=== PATIENT | male | born 1955 | race African-American/Black ===

== ENCOUNTER 2021-04-04 18:10 | Emergency (ER) | payer OTHER, MEDICAID ==
[~2021-04-04] VITALS: Ht 177.8 cm; Wt 86.2 kg
--- NOTE | 2021-04-04 18:10 | NUR ---
Patient KERRI ALS accompanied by Lilliam lopez 101, transferred to bed 10. RN evaluating the patient at bedside.
[2021-04-04 18:14] VITALS: BP 110/58
[2021-04-04] MEDS ORDERED: diphenhydrAMINE 50 MG/ML VIAL IVP ONE (18:15)
[2021-04-04] MEDS ORDERED: NACL 0.9% 1,000 ML IV ONE ×2 (18:15→19:35)
[2021-04-04] MEDS ORDERED: LORazepam 2 MG/ML VIAL IVP ONE ×2 (18:15→19:10)
[2021-04-04 18:35] LABS: BASOPHILS % (AUTO) 0.5 % (0.0-2.0); EOSINOPHILS % (AUTO) 0.5 % (0.0-4.0); HEMATOCRIT 40.9 % (36-52); HEMOGLOBIN 13.4 g/dL (12.0-18.0); LYMPHOCYTES # (AUTO) 0.9 K/uL (2.0-11.5); LYMPHOCYTES % (AUTO) 16.6 % (20.5-51.1); MEAN CORPUSCULAR HEMOGLOBIN 29 pg (27-31); MEAN CORPUSCULAR HGB CONC 33 g/dL (33-37); MEAN CORPUSCULAR VOLUME 88.4 fL (80-94); MONOCYTES # (AUTO) 0.5 K/uL (0.8-1.0); MONOCYTES % (AUTO) 9.3 % (1.7-9.3); NEUTROPHILS # (AUTO) 4.2 K/uL (1.8-7.7); NEUTROPHILS % (AUTO) 73.1 % (42.2-75.2); PLATELET COUNT (AUTO) 219 K/uL (140-450); RED BLOOD CELL COUNT(AUTO) 4.63 MIL/uL (4.20-6.10); RED CELL DISTRIBUTION WIDTH 13.6 % (11.6-13.7); WHITE BLOOD COUNT (AUTO) 5.7 K/uL (4.8-10.8)
--- NOTE | 2021-04-04 18:55 | NUR ---
66 Y/O M BIBA FROM HOME, FAMILY STATES PT WAS WORKING OUT AND STARTED HAVING TREMBLING THAT STARTED TODAY. PT STATES HE TOOK NORCO FOR PAIN, BUT DENIES ANY OTHER DRUG USE. PT IS NOT C/O PAIN AT THIS TIME [facility] STATES PT WAS INCONTINENT AT SCENE. PT IS A&OX4 UNABLE TO AMBULATE AT THIS TIME. DENIES N/V/D; SKIN IS PINK/COOL/DRY; ; LUNGS CLEAR BL; HR EVEN AND TACHY; PT DENIES ANY FEVER, CP, SOB, OR COUGH AT THIS TIME; PATIENT STATES PAIN OF 0/10 AT THIS TIME; VSS; PATIENT POSITIONED FOR COMFORT; HOB ELEVATED; BEDRAILS UP X2; BED DOWN. ER MD MADE AWARE OF PT STATUS. PMH: CVA, SEIZURE NKA MED: NORCO X2
--- NOTE | 2021-04-04 19:01 | NUR ---
EKG WAS PREFORMED. EKG READS ATRIAL FIBRILLATION AT 141 HR. ERMD REQUESTED TO WAIT AND TAKE ANOTHER EKG LATER DUE TO ARTIFACTS ON EKG.
[2021-04-04 19:24] LABS: ASPARTATE AMINOTRANSFERASE 23 U/L (15-37); CARBON DIOXIDE 25.1 mmol/L (21-32); CHLORIDE 104 mmol/L (98-107); CREATININE 1.1 mg/dL (0.6-1.3); GFR ARICAN-AMERICAN 86 mL/min (>90); GLUCOSE 100 mg/dL (74-106); POTASSIUM 4.1 mmol/L (3.5-5.1); SODIUM SERUM 140 mmol/L (136-145); TOTAL BILIRUBIN 0.4 mg/dL (0.0-1.0); UREA NITROGEN, BLOOD 20 mg/dL (7-18)
[2021-04-04 19:26] LABS: ACETAMINOPHEN < 0.5 ug/ml (10-30); SALICYLATE < 2.8 mg/dL (2.8-20.0)
--- NOTE | 2021-04-04 19:29 | NUR ---
Pt report given to KHADIJAH RN. Transfer of care at this time.
--- NOTE | 2021-04-04 19:29 | NUR ---
Received report from MARY Crooks for continuity of care
--- NOTE | 2021-04-04 19:54 | NUR ---
PT TAKEN TO CT
--- NOTE | 2021-04-04 20:09 | NUR ---
PT RETURNED FROM CT
[2021-04-04 20:53] LABS: APPEARANCE,URINE CLEAR (CLEAR); BILIRUBIN,URINE NEGATIVE (NEGATIVE); BLOOD, URINE 1+ (NEGATIVE); LEUKOCYTE ESTERASE ,URINE NEGATIVE (NEGATIVE); NITRITE, URINE NEGATIVE (NEGATIVE); UGLUCOSE NEGATIVE (NEGATIVE)
[2021-04-04 20:58] LABS: COLOR,URINE STRAW (YELLOW)
--- NOTE | 2021-04-04 21:00 | NUR ---
Patient had an witnessed fall due to agitation and attempting to find wallet that he never brought in. Patient fell on the bottom and slowly fell down. patient injured right elbow with a small abrasion. no other wounds noted.
[2021-04-04 21:06] LABS: RBC,URINE 0-5 /HPF (0-5)
[2021-04-04 21:09] LABS: WBC,URINE NONE SEEN /HPF (0-5)
[2021-04-04] MEDS ORDERED: levETIRAcetam 1,000 MG in NACL 0.9% 100 ML IV ONE (21:10)
[2021-04-04 21:11] LABS: BARBITURATE, URINE NEGATIVE ng/ml (NEG <=200); BENZODIAZEPINE, URINE NEGATIVE ng/mL (NEG <=200); CANNABINOID, URINE NEGATIVE ng/mL (NEG <=50); COCAINE, URINE NEGATIVE ng/mL (NEG <=300); PHENCYCLIDINE SCREEN,URINE NEGATIVE ng/mL (NEG <=25)
[2021-04-04 21:12] LABS: OPIATE, URINE POSITIVE ng/mL (NEG <=2000)
[2021-04-04] MEDS ORDERED: LORazepam 2 MG/ML VIAL ONE (21:36)
[2021-04-04] MEDS ORDERED: levETIRAcetam 100 MG/ML VIAL IV ONE (22:03)
[2021-04-04] MEDS ORDERED: traZODone 50 MG TAB PO SCH (22:05)
--- NOTE | 2021-04-04 22:30 | NUR ---
patient pulled out own IV due to agitation and restlessness. patient explaining that he is "trying to find his wallet". Able to place new IV in patient
[2021-04-04] MEDS ORDERED: ASPIRIN 325 MG TAB PO ONE (23:30)
--- NOTE | 2021-04-05 | NUR ---
patient restless and agitated but able to calm with communication. patient slightly altered. keeps complaining of trying to go home.
--- NOTE | 2021-04-05 02:50 | NUR ---
Patient appears to be resting comfortably in bed. Vital Signs within normal limits. Respirations even and unlabored. Safety measures in place. Will continue to monitor patient
[2021-04-05] MEDS ORDERED: GABA300C PO (03:14)
[2021-04-05] MEDS ORDERED: ATOR10TA PO (03:14)
[2021-04-05] MEDS ORDERED: HYDR-4004 PO (03:14)
[2021-04-05] MEDS ORDERED: MELO15TA11 PO (03:14)
[2021-04-05] MEDS ORDERED: CIPR500T4 PO (03:14)
[2021-04-05] MEDS ORDERED: AMLO10TA PO (03:14)
[2021-04-05] MEDS ORDERED: DOCU-299 PO (03:14)
[2021-04-05] MEDS ORDERED: LORazepam 2 MG/ML VIAL IVP ONE (03:35)
--- NOTE | 2021-04-05 03:41 | NUR ---
patient continues to be restless and agitated but can be calmed down with communication.
--- NOTE | 2021-04-05 05:25 | NUR ---
Steph benitez the sister of the patient #[phone]
--- NOTE | 2021-04-05 07:20 | NUR ---
Pt report given to MARY Quintero & MARY Storm. Transfer of care at this time.
--- NOTE | 2021-04-05 07:21 | NUR ---
REPORT RECIEVED FROM MARY LUCIO. TRANSFER OF CARE RECEIVED
--- NOTE | 2021-04-05 08:40 | NUR ---
PT SLEEPING BEDSIDE. BED IN LOWEST POSITION. SIDERAILS X2 UP. WILL CONTINUE TO MONITOR
--- NOTE | 2021-04-05 08:51 | NUR ---
REPORT GIVEN TO MARY YORK AT [facility]. ETA 10 MIN
--- NOTE | 2021-04-05 09:37 | NUR ---
[facility] AT BEDSIDE FOR TRANSFER
[2021-04-05 09:52] VITALS: BP 133/79
--- NOTE | 2021-04-05 09:56 | NUR ---
Patient to be transferred to [facility]. Is being transferred due to continuity of care, NEUROLOGY. Receiving facility has accepting physician and available space. ER physician has signed transfer form. Patient or responsible alliance party has agreed to transfer and signed form. Patient belongings inventoried and will be sent with patient. Copy of nursing notes, lab reports, EKG, Physicians Orders and X-rays to be sent with patient. Report called to MARY MARRERO at receiving facility. [facility] ambulance service has been called for transfer. ETA is [id number].
== END 2021-04-05 09:56 | disposition short-term general hospital (02) ==
LOC: MED 18:10
DX: G40.89 Other seizures (principal); R29.810 Facial weakness; I63.9 Cerebral infarction, unspecified; R40.4 Transient alteration of awareness; Z20.828 Contact with and (suspected) exposure to other viral communicable diseases; Z79.899 Other long term (current) drug therapy
CPT/HCPCS: 36415; 70450; 70496; 70498; 71045; 80053; 80305; 81001; 82550; 82553; 84484; 85025; 87086; 87426; 93005; 96361; 96365; 96375; 96376; 99285; G0480; G0482; J1200; J1953; J2060; J7030; Q9967